=== PATIENT | female | born 1960 | race Hispanic/Latino ===

== ENCOUNTER 2016-09-02 11:12 | Day surgery (SDC) | payer BC ==
[~2016-09-02 11:12] MED LIST: NACL 0.9% 1000 ML 1,000 ML IV SCH; PEPCID PO NR; VERSED IV NR
[2016-09-02] MEDS ORDERED: ZOFRAN IV PRN (11:49)
--- NOTE | 2016-09-02 11:49 | Anesthesia Day of Surgery ---
Anesthesia Day of Surgery - Day of Surgery Patient Examined: Yes Patient H&P Reviewed: Yes Patient is NPO: Yes
--- NOTE | 2016-09-02 11:55 | Anesthesia Consultation ---
Anesthesia Consult and Med Hx Date of service: 09/02/16 - Airway Anesthetic Teeth Evaluation: Good, Bridges (top) ROM Head & Neck: Adequate Mental/Hyoid Distance: Adequate Mallampati Class: Class II Intubation Access Assessment: Probably Good - Pulmonary Exam CTA: Yes - Cardiac Exam Cardiac Exam: RRR - Pre-Operative Health Status ASA Pre-Surgery Classification: ASA2 Proposed Anesthetic Plan: General - Pulmonary Hx Smoking: Yes (quit 10 yrs ago) Hx Asthma: Yes (seasonal) Hx Respiratory Symptoms: No (recent sinus infections) Hx Sleep Apnea: Yes (+CPAP) - Cardiovascular System Hx Hypertension: No - Central Nervous System Hx Seizures: No CVA: No - Endocrine Hx End Stage Renal Disease: No Hx Cirrhosis: No Hx Thyroid Disease: Yes (thyroid nodules) - Other Systems Hx Obesity: Yes
[2016-09-02] MEDS ORDERED: ANCEF/STERILE WATER 2 GM/20 ML 2 GM/20 ML SYRINGE IV NR (13:10)
[2016-09-02] MEDS ORDERED: MARCAINE-EPI 0.25%-1:200,000 INFILTRATI ONE (13:17)
[2016-09-02] MEDS ORDERED: DEPO-MEDROL ONE (13:17)
[2016-09-02] MEDS ORDERED: DILAUDID ONE (13:46)
[2016-09-02] MEDS ORDERED: DIPRIVAN 10 MG/ML IV ONE (13:46)
[2016-09-02] MEDS ORDERED: XYLOCAINE MPF 2% ONE (14:05)
[2016-09-02] MEDS ORDERED: NACL 0.9% IR ONE (14:10)
[2016-09-02] MEDS ORDERED: MARCAINE-EPI 0.25%-1:200,000 IJ ONE (14:10)
[2016-09-02] MEDS ORDERED: NACL 0.9% 1000 ML 1,000 ML ONE (14:38)
[2016-09-02] MEDS ORDERED: DECADRON ONE (14:40)
[2016-09-02] MEDS ORDERED: TORADOL ONE (14:59)
[2016-09-02] MEDS ORDERED: ZOFRAN ONE (14:59)
[2016-09-02] MEDS: DILAUDID IV PRN ×2 (15:33→15:50)
[2016-09-02] MEDS ORDERED: NORCO 5/325 PO PRN (16:04)
[2016-09-02 17:05] VITALS: BP 111/59
--- NOTE | 2016-09-03 08:33 | Post Anesthesia Evaluation ---
- Post Anesthesia Evaluation Patient Participated: Yes Airway Patent: Yes Stable Respiratory Function: Yes Nausea/Vomiting: No Temp > 96.8F: Yes Pain Manageable: Yes Adequeate Hydration: Yes Anesthesia Complications: No Block Receding Appropriately: Not Applicable Patient on Ventilator: No
== END 2016-09-02 11:13 | disposition home or self-care (01) ==
LOC: OR 11:12
PROVIDERS: ATTEND Orthopaedic Surgery
DX: S83.241A Other tear of medial meniscus, current injury, right knee, initial encounter (principal); M94.261 Chondromalacia, right knee; F41.9 Anxiety disorder, unspecified; M19.90 Unspecified osteoarthritis, unspecified site; J45.909 Unspecified asthma, uncomplicated; F32.9 Major depressive disorder, single episode, unspecified; G47.30 Sleep apnea, unspecified; Z90.49 Acquired absence of other specified parts of digestive tract; Z98.890 Other specified postprocedural states; Z88.5 Allergy status to narcotic agent; X58.XXXA Exposure to other specified factors, initial encounter
CPT/HCPCS: 29881; A4217; J0690; J1100; J1170; J1885; J2250; J2405; J2704; J7030; J1030